=== PATIENT | male | born 1945 | race Two or more races ===

== ENCOUNTER 2016-11-17 14:08 | Inpatient (IN) | payer MEDICAID ==
[2016-11-17 14:01] LABS: BASO % 0.3 % (0-2); EOS % 3.5 % (0-7); EOSINOPHIL ABSOLUTE COUNT 0.4 tho/cmm (0.0-0.7); IMMATURE GRANULOCYTES ABSOLUTE 0.07 tho/cmm (0-0.03); IMMATURE GRANULOCYTES PERCENT 0.7 % (0-0.3); LYMPH % 35.9 % (20-45); LYMPH ABSOLUTE COUNT 3.8 tho/cmm (0.8-4.5); MCH (MEAN CORPUSCULAR HGB) 28.5 pg (28.0-32.0); MCHC MEAN CORPUSCULAR HGB CONC 34.2 % (32.0-36.0); MCV (MEAN CELL VOLUME) 83.3 fl (82.0-96.0); MEAN PLATELET VOLUME 9.4 cmc (9.4-12.4); MONO % 11.1 % (0-12); MONOCYTE ABSOLUTE COUNT 1.2 tho/cmm (0.0-1.2); NEUTROPHIL ABSOLUTE COUNT 5.1 tho/cmm (1.6-8.0); NEUTROPHIL-AUTOMATED 5.1 tho/cmm (1.6-8.0); NEUTROPHILS % 48.5 % (40-80); PLATELET COUNT 363 tho/cmm (150-450); RED BLOOD COUNT 4.56 mil/cmm (4.40-5.70); RED CELL DISTRIBUTION WIDTH 13.5 % (12.4-16.4); WHITE BLOOD COUNT 10.4 tho/cmm (4.0-10.0)
[~2016-11-17 14:08] MED LIST: ANTIVERT25 M1 PO; ASPIRIN325 M3 PO; ATORVASTATIN CA40 M1 PO; BACLOFEN20 M1 PO; CELEXA40 M2 PO; FLUTICASONE PRO16 G1; GLIPIZIDE5 M2 PO; LEVAQUIN750 M1 PO; MECLIZINE HCL25 M3 PO; METFORMIN HCL1000 M2 PO; NEURONTIN300 M1 PO; PLAVIX75 M1 PO; PREDNISOLONE ACE5 M1 OP; PROSCAR5 M1 PO; PROVENTIL HFA6.7 G1 IH; TAMSULOSIN HCL0.4 M1 PO; TOPROL XL25 M1 PO; TYLENOL325 M2 PO; ULTRAM50 M1 PO
[2016-11-17 14:15] LABS: ALB/GLOB RATIO 0.9 (0.8-2.0); ALBUMIN 3.7 g/dl (3.5-5.0); ALKALINE PHOSPHATASE 100 U/L (33-138); ALT/SGPT 22 U/L (12-78); ANION GAP 12 mmol/L (0-20); AST/SGOT 12 U/L (10-40); BILIRUBIN,TOTAL 0.5 mg/dl (0.0-1.5); BLOOD UREA NITROGEN 13 mg/dl (6-24); CARBON DIOXIDE-VENOUS 29 mmol/L (22-32); CHLORIDE 101 mmol/l (96-110); CREATININE 0.84 mg/dl (0.60-1.30); GLUCOSE 140 mg/dL (70-110); POTASSIUM 3.7 mmol/L (3.7-5.1); SODIUM 138 mmol/L (135-145); eGFR VALUE FOR BLACK >90 mL/Min
[2016-11-17 14:45] LABS: ESR-ERYTHROCYTE SED RATE 25 mm/hr (0-20)
[2016-11-17 17:12] LABS: URINE APPEARANCE CLEAR; URINE BILIRUBIN NEGATIVE (NEG); URINE BLOOD NEGATIVE (NEG); URINE COLOR YELLOW; URINE GLUCOSE (UA) NEGATIVE (NEG); URINE KETONE NEGATIVE (NEG); URINE LEUKOCYTE ESTERASE NEGATIVE (NEG); URINE NITRITE NEGATIVE (NEG); URINE PROTEIN NEGATIVE (NEG)
[2016-11-18 14:35] LABS: TSH-THYROID STIMULATING HORM. 2.41 uIU/ml (0.40-3.80)
[2016-11-19] MEDS ORDERED: PLAVIX75 M1 PO (09:43)
[2016-11-19] MEDS ORDERED: TYLENOL325 M2 PO (09:46)
[2017-04-10] MEDS ORDERED: POTASSIUM CHLO20 ME3 PO (11:17)
[2017-04-10] MEDS ORDERED: LASIX40 M1 PO (11:17)
[2017-05-11] MEDS ORDERED: ROXANOL SL (12:58)
[2017-05-11] MEDS ORDERED: COLACE100 M1 PO (13:03)
[2017-05-11] MEDS ORDERED: MIRALAX17 G2 PO (13:03)
== END 2016-11-19 15:10 | DRG 66 ==
LOC: EDMED 14:08 → EMR2 16:48 → 5EB 19:10
PROVIDERS: Emergency Medicine; Psychiatry & Neurology Neurology; ADMIT Internal Medicine
DX: I63.9 Cerebral infarction, unspecified (principal); E11.65 Type 2 diabetes mellitus with hyperglycemia; I10 Essential (primary) hypertension; R29.810 Facial weakness; R33.9 Retention of urine, unspecified; Z79.82 Long term (current) use of aspirin; Z79.02 Long term (current) use of antithrombotics/antiplatelets; I73.9 Peripheral vascular disease, unspecified; Z79.84 Long term (current) use of oral hypoglycemic drugs; Z87.891 Personal history of nicotine dependence; Z85.528 Personal history of other malignant neoplasm of kidney; R30.0 Dysuria; R27.0 Ataxia, unspecified
CPT/HCPCS: A9577; J1650; J1815; J7030

== ENCOUNTER 2016-11-20 17:48 | Inpatient (IN) | payer MEDICAID ==
[2016-11-20 18:21] LABS: CARBON DIOXIDE-VENOUS 30 mmol/L (21-33); CREATININE 1.42 mg/dl (0.67-1.17); GLUCOSE 210 mg/dl (65-120); POTASSIUM 4.2 mmol/L (3.5-5.3); SODIUM 138 mmol/L (135-146); eGFR VALUE FOR BLACK 58 mL/Min
[2016-11-20 18:23] LABS: BASO % 0.2 % (0-2); EOS % 2.6 % (0-7); EOSINOPHIL ABSOLUTE COUNT 0.3 tho/cmm (0.0-0.7); HCT-HEMATOCRIT 36.2 % (36.0-53.5); HGB-HEMOGLOBIN 12.2 gm/dl (13.5-17.0); IMMATURE GRANULOCYTES ABSOLUTE 0.04 tho/cmm (0-0.03); IMMATURE GRANULOCYTES PERCENT 0.3 % (0-0.3); LYMPH % 29.7 % (20-45); LYMPH ABSOLUTE COUNT 3.4 tho/cmm (0.8-4.5); MCH (MEAN CORPUSCULAR HGB) 28.5 pg (28.0-32.0); MCHC MEAN CORPUSCULAR HGB CONC 33.7 % (32.0-36.0); MCV (MEAN CELL VOLUME) 84.6 fl (82.0-96.0); MEAN PLATELET VOLUME 9.5 cmc (9.4-12.4); MONO % 9.9 % (0-12); MONOCYTE ABSOLUTE COUNT 1.1 tho/cmm (0.0-1.2); NEUTROPHIL ABSOLUTE COUNT 6.6 tho/cmm (1.6-8.0); NEUTROPHIL-AUTOMATED 6.6 tho/cmm (1.6-8.0); NEUTROPHILS % 57.3 % (40-80); PLATELET COUNT 330 tho/cmm (150-450); RED BLOOD COUNT 4.28 mil/cmm (4.40-5.70); RED CELL DISTRIBUTION WIDTH 13.4 % (12.4-16.4); WHITE BLOOD COUNT 11.6 tho/cmm (4.0-10.0)
[2016-11-20 18:29] LABS: INR 1.1 INR (0.9-1.1); PROTHROMBIN TIME 12.6 SECONDS (9.0-13.6)
[2016-11-20 18:41] LABS: ALBUMIN 3.7 g/dl (3.5-5.0); ALKALINE PHOSPHATASE 97 U/L (33-138); ALT/SGPT 23 U/L (12-78); ANION GAP 9 mmol/L (0-20); AST/SGOT 15 U/L (10-40); BILIRUBIN,TOTAL 0.5 mg/dl (0.0-1.5); BLOOD UREA NITROGEN 19 mg/dl (6-24); CHLORIDE 103 mmol/l (96-110)
[2016-11-20 18:54] LABS: ESR-ERYTHROCYTE SED RATE 19 mm/hr (0-20)
[2016-11-20 20:27] LABS: ABG CO2 ARTERIAL 27 mmol/L (21-27); ARTERIAL BLD GAS O2 SATURATION 94 % (95-98); ARTERIAL BLOOD GAS PCO2 46 mmHg (32-45); ARTERIAL PO2 76 mmHg (70-100); BICARBONATE 25 mmol/L (21-28); BLOOD GAS BASE EXCESS 0 mM/L (-/+3); PH 7.36 Units (7.35-7.45)
[2016-11-20 20:56] LABS: URINE LEUKOCYTE ESTERASE NEGATIVE (NEG); URINE PROTEIN MODERATE (NEG)
[2016-11-20 20:57] LABS: URINE APPEARANCE CLOUDY; URINE BILIRUBIN SMALL (NEG); URINE BLOOD MODERATE (NEG); URINE COLOR YELLOW; URINE GLUCOSE (UA) MODERATE (NEG); URINE KETONE SMALL (NEG); URINE NITRITE NEGATIVE (NEG)
[2016-11-20 21:01] LABS: URINE RBC 0-2 /[HPF] (0-5); URINE WBC 0 /[HPF] (0-5)
[2016-11-20 21:02] LABS: URINE EPITHELIAL CELLS 0 /[HPF] (0-10)
[2016-11-20 23:15] LABS: AMYLASE 40 U/L (20-90); LIPASE 62 U/L (73-393)
[2016-11-21 06:31] LABS: CREATININE 0.78 mg/dl (0.67-1.17); eGFR VALUE FOR BLACK >90 mL/Min
[2016-11-22 05:51] LABS: BASO % 0.5 % (0-2); BASO ABSOLUTE COUNT 0.1 tho/cmm (0.0-0.2); EOS % 3.1 % (0-7); EOSINOPHIL ABSOLUTE COUNT 0.3 tho/cmm (0.0-0.7); HCT-HEMATOCRIT 36.3 % (36.0-53.5); HGB-HEMOGLOBIN 12.3 gm/dl (13.5-17.0); IMMATURE GRANULOCYTES ABSOLUTE 0.04 tho/cmm (0-0.03); IMMATURE GRANULOCYTES PERCENT 0.4 % (0-0.3); LYMPH ABSOLUTE COUNT 3.9 tho/cmm (0.8-4.5); MCH (MEAN CORPUSCULAR HGB) 28.2 pg (28.0-32.0); MCHC MEAN CORPUSCULAR HGB CONC 33.9 % (32.0-36.0); MCV (MEAN CELL VOLUME) 83.3 fl (82.0-96.0); MEAN PLATELET VOLUME 9.4 cmc (9.4-12.4); MONO % 10.1 % (0-12); NEUTROPHIL ABSOLUTE COUNT 4.9 tho/cmm (1.6-8.0); NEUTROPHIL-AUTOMATED 4.9 tho/cmm (1.6-8.0); NEUTROPHILS % 47.9 % (40-80); PLATELET COUNT 355 tho/cmm (150-450); RED BLOOD COUNT 4.36 mil/cmm (4.40-5.70); RED CELL DISTRIBUTION WIDTH 13.1 % (12.4-16.4); WHITE BLOOD COUNT 10.2 tho/cmm (4.0-10.0)
[2016-11-22 06:08] LABS: ANION GAP 10 mmol/L (0-20); BLOOD UREA NITROGEN 8 mg/dl (6-24); CALCIUM 8.6 mg/dl (8.5-10.5); CARBON DIOXIDE-VENOUS 29 mmol/L (22-32); CHLORIDE 103 mmol/l (96-110); CREATININE 0.77 mg/dl (0.60-1.30); GLUCOSE 169 mg/dL (70-110); POTASSIUM 3.6 mmol/L (3.7-5.1); SODIUM 138 mmol/L (135-145); eGFR VALUE FOR BLACK >90 mL/Min
[2017-04-10] MEDS ORDERED: POTASSIUM CHLO20 ME3 PO (11:17)
[2017-04-10] MEDS ORDERED: LASIX40 M1 PO (11:17)
[2017-05-11] MEDS ORDERED: ROXANOL SL (12:58)
[2017-05-11] MEDS ORDERED: MIRALAX17 G2 PO (13:03)
[2017-05-11] MEDS ORDERED: COLACE100 M1 PO (13:03)
== END 2016-11-22 13:30 | disposition home health service (06) | DRG 444 ==
LOC: EDMED 17:48 → EMR2 21:31 → PCUB 11-21 00:35
PROVIDERS: Emergency Medicine; Family Medicine; Internal Medicine; ADMIT Hospitalist
DX: K80.20 Calculus of gallbladder without cholecystitis without obstruction (principal); A41.9 Sepsis, unspecified organism; R65.20 Severe sepsis without septic shock; N17.9 Acute kidney failure, unspecified; I95.9 Hypotension, unspecified; E11.51 Type 2 diabetes mellitus with diabetic peripheral angiopathy without gangrene; R41.82 Altered mental status, unspecified; E78.5 Hyperlipidemia, unspecified; Z87.891 Personal history of nicotine dependence; Z85.528 Personal history of other malignant neoplasm of kidney; Z86.73 Personal history of transient ischemic attack (TIA), and cerebral infarction without residual deficits
CPT/HCPCS: G8978-GP-CJ; G8979-GP-CJ; J1815; J2543; J3370; J7030

== ENCOUNTER 2017-04-23 15:38 | Inpatient (IN) | payer MEDICAID ==
[~2017-04-23] VITALS: Ht 188 cm; Wt 81.8 kg
[~2017-04-23 15:38] MED LIST changes: +LASIX40 M1 PO; +POTASSIUM CHLO20 ME3 PO
[2017-04-23 15:58] LABS: ABG CO2 ARTERIAL 28 mmol/L (21-27); ARTERIAL BLD GAS O2 SATURATION 100 % (95-98); ARTERIAL BLOOD GAS PCO2 41 mmHg (32-45); ARTERIAL PO2 215 mmHg (70-100); BICARBONATE 27 mmol/L (21-28); BLOOD GAS BASE EXCESS 3 mM/L (-/+3); PH 7.44 Units (7.35-7.45)
[2017-04-23 16:08] LABS: INR 1.4 INR (0.9-1.1); PROTHROMBIN TIME 16.1 SECONDS (9.0-13.6)
[2017-04-23 16:09] LABS: BASO % 0.9 % (0-2); BASO ABSOLUTE COUNT 0.1 tho/cmm (0.0-0.2); EOS % 3.1 % (0-7); EOSINOPHIL ABSOLUTE COUNT 0.3 tho/cmm (0.0-0.7); HGB-HEMOGLOBIN 6.6 gm/dl (13.5-17.0); IMMATURE GRANULOCYTES ABSOLUTE 0.02 tho/cmm (0-0.03); IMMATURE GRANULOCYTES PERCENT 0.3 % (0-0.3); LYMPH % 30.9 % (20-45); LYMPH ABSOLUTE COUNT 2.5 tho/cmm (0.8-4.5); MCH (MEAN CORPUSCULAR HGB) 27.2 pg (28.0-32.0); MCV (MEAN CELL VOLUME) 82.3 fl (82.0-96.0); MEAN PLATELET VOLUME 8.8 cmc (9.4-12.4); MONOCYTE ABSOLUTE COUNT 0.8 tho/cmm (0.0-1.2); NEUTROPHIL ABSOLUTE COUNT 4.4 tho/cmm (1.6-8.0); NEUTROPHIL-AUTOMATED 4.4 tho/cmm (1.6-8.0); NEUTROPHILS % 54.8 % (40-80); PLATELET COUNT 256 tho/cmm (150-450); RED BLOOD COUNT 2.43 mil/cmm (4.40-5.70); RED CELL DISTRIBUTION WIDTH 21.8 % (12.4-16.4)
[2017-04-23 16:24] LABS: ALB/GLOB RATIO 0.4 (0.8-2.0); ALBUMIN 2.2 g/dl (3.5-5.0); ALKALINE PHOSPHATASE 70 U/L (33-138); ALT/SGPT 15 U/L (12-78); ANION GAP 12 mmol/L (0-20); AST/SGOT 6 U/L (10-40); BILIRUBIN,TOTAL 0.6 mg/dl (0.0-1.5); BLOOD UREA NITROGEN 13 mg/dl (6-24); CALCIUM 7.8 mg/dl (8.5-10.5); CARBON DIOXIDE-VENOUS 27 mmol/L (22-32); CHLORIDE 103 mmol/l (96-110); CREATININE 0.89 mg/dl (0.60-1.30); GLUCOSE 105 mg/dL (70-110); POTASSIUM 3.9 mmol/L (3.7-5.1); SODIUM 138 mmol/L (135-145); eGFR VALUE FOR BLACK >90 mL/Min
[2017-04-23 16:49] LABS: PROCALCITONIN 0.45 ng/ml (0.05-0.09)
[2017-04-23 17:45] LABS: URINE BILIRUBIN NEGATIVE (NEG); URINE BLOOD MODERATE (NEG); URINE GLUCOSE (UA) NEGATIVE (NEG); URINE KETONE NEGATIVE (NEG); URINE LEUKOCYTE ESTERASE NEGATIVE (NEG); URINE NITRITE NEGATIVE (NEG); URINE PROTEIN NEGATIVE (NEG); URINE SPECIFIC GRAVITY 1.005 (1.003-1.030)
[2017-04-23 17:50] LABS: URINE APPEARANCE CLEAR; URINE COLOR YELLOW
[2017-04-23 18:01] LABS: URINE EPITHELIAL CELLS 0 /[HPF] (0-10); URINE WBC 0 /[HPF] (0-5)
--- NOTE | 2017-04-23 22:21 | NUR ---
CHARTED AGAINST 2000 ASSESSMENT BECAUSE CHARTED ADMISSION ASSESSMENT. PT ARRIVED TO FLOOR AROUND 1924. DID NOT CHART 2 ASSESSMENTS. SEE ADMISSION ASSESSMENT.
[2017-04-24 05:00] LABS: BASO % 0.3 % (0-2); BASO ABSOLUTE COUNT 0.1 tho/cmm (0.0-0.2); EOS % 0.7 % (0-7); EOSINOPHIL ABSOLUTE COUNT 0.1 tho/cmm (0.0-0.7); HCT-HEMATOCRIT 19.3 % (36.0-53.5); HGB-HEMOGLOBIN 6.3 gm/dl (13.5-17.0); IMMATURE GRANULOCYTES ABSOLUTE 0.06 tho/cmm (0-0.03); IMMATURE GRANULOCYTES PERCENT 0.3 % (0-0.3); LYMPH % 20.4 % (20-45); LYMPH ABSOLUTE COUNT 3.7 tho/cmm (0.8-4.5); MCHC MEAN CORPUSCULAR HGB CONC 32.6 % (32.0-36.0); MCV (MEAN CELL VOLUME) 82.8 fl (82.0-96.0); MONO % 4.3 % (0-12); MONOCYTE ABSOLUTE COUNT 0.8 tho/cmm (0.0-1.2); NEUTROPHIL ABSOLUTE COUNT 13.2 tho/cmm (1.6-8.0); NEUTROPHIL-AUTOMATED 13.2 tho/cmm (1.6-8.0); PLATELET COUNT 244 tho/cmm (150-450); RED BLOOD COUNT 2.33 mil/cmm (4.40-5.70); RED CELL DISTRIBUTION WIDTH 21.9 % (12.4-16.4); WHITE BLOOD COUNT 17.9 tho/cmm (4.0-10.0)
[2017-04-24 05:11] LABS: ABG CO2 ARTERIAL 26 mmol/L (21-27); ARTERIAL BLD GAS O2 SATURATION 98 % (95-98); ARTERIAL BLOOD GAS PCO2 35 mmHg (32-45); ARTERIAL PO2 90 mmHg (70-100); BICARBONATE 25 mmol/L (21-28); BLOOD GAS BASE EXCESS 2 mM/L (-/+3); PH 7.47 Units (7.35-7.45)
[2017-04-24 05:13] LABS: ALB/GLOB RATIO 0.5 (0.8-2.0); ALBUMIN 2.2 g/dl (3.5-5.0); ALKALINE PHOSPHATASE 66 U/L (33-138); ALT/SGPT 11 U/L (12-78); ANION GAP 12 mmol/L (0-20); AST/SGOT 6 U/L (10-40); BILIRUBIN,TOTAL 0.6 mg/dl (0.0-1.5); BLOOD UREA NITROGEN 14 mg/dl (6-24); CALCIUM 7.2 mg/dl (8.5-10.5); CARBON DIOXIDE-VENOUS 26 mmol/L (22-32); CHLORIDE 105 mmol/l (96-110); CREATININE 1.01 mg/dl (0.60-1.30); GLUCOSE 128 mg/dL (70-110); POTASSIUM 3.9 mmol/L (3.7-5.1); SODIUM 139 mmol/L (135-145); eGFR VALUE FOR BLACK 87 mL/Min
[2017-04-24 06:05] LABS: PROCALCITONIN 0.48 ng/ml (0.05-0.09)
[2017-04-24 11:03] LABS: HCT-HEMATOCRIT 21.7 % (36.0-53.5); HGB-HEMOGLOBIN 7.4 gm/dl (13.5-17.0); MCV (MEAN CELL VOLUME) 84.4 fl (82.0-96.0); RED CELL DISTRIBUTION WIDTH 20.9 % (12.4-16.4)
[2017-04-24 11:18] LABS: IRON 16 ug/dl (49-181); IRON BINDING CAPACITY 165 ug/dl (250-450)
[2017-04-24 15:08] LABS: CSF GLUCOSE 88 mg/dl (40-75)
[2017-04-24 15:15] LABS: CSF APPEARANCE CLEAR (CLEAR); CSF COLOR COLORLESS (COLORLESS); CSF TUBE NUMBER CSF TUBE 3; CSF VOLUME 7.5 ml
[2017-04-24 15:16] LABS: CSF RBC CT 0 cmm (0); CSF WBC CT <1 cmm (0-10)
[2017-04-24 16:00] LABS: MCV (MEAN CELL VOLUME) 82.5 fl (82.0-96.0); RED CELL DISTRIBUTION WIDTH 19.3 % (12.4-16.4)
[2017-04-24 16:05] LABS: HCT-HEMATOCRIT 27.3 % (36.0-53.5); HGB-HEMOGLOBIN 9.3 gm/dl (13.5-17.0)
[2017-04-24 19:27] LABS: HCT-HEMATOCRIT 25.8 % (36.0-53.5); HGB-HEMOGLOBIN 8.9 gm/dl (13.5-17.0); MCV (MEAN CELL VOLUME) 82.4 fl (82.0-96.0); RED CELL DISTRIBUTION WIDTH 19.5 % (12.4-16.4)
[2017-04-25 05:04] LABS: ABG CO2 ARTERIAL 26 mmol/L (21-27); ARTERIAL BLD GAS O2 SATURATION 98 % (95-98); ARTERIAL BLOOD GAS PCO2 37 mmHg (32-45); ARTERIAL PO2 95 mmHg (70-100); BICARBONATE 25 mmol/L (21-28); BLOOD GAS BASE EXCESS 1 mM/L (-/+3); PH 7.45 Units (7.35-7.45)
[2017-04-25 05:36] LABS: BASO % 0.7 % (0-2); BASO ABSOLUTE COUNT 0.1 tho/cmm (0.0-0.2); EOS % 2.5 % (0-7); EOSINOPHIL ABSOLUTE COUNT 0.3 tho/cmm (0.0-0.7); HCT-HEMATOCRIT 27.3 % (36.0-53.5); HGB-HEMOGLOBIN 9.3 gm/dl (13.5-17.0); IMMATURE GRANULOCYTES ABSOLUTE 0.02 tho/cmm (0-0.03); IMMATURE GRANULOCYTES PERCENT 0.2 % (0-0.3); LYMPH % 30.6 % (20-45); LYMPH ABSOLUTE COUNT 3.1 tho/cmm (0.8-4.5); MCHC MEAN CORPUSCULAR HGB CONC 34.1 % (32.0-36.0); MCV (MEAN CELL VOLUME) 82.2 fl (82.0-96.0); MEAN PLATELET VOLUME 8.7 cmc (9.4-12.4); MONO % 8.9 % (0-12); MONOCYTE ABSOLUTE COUNT 0.9 tho/cmm (0.0-1.2); NEUTROPHIL ABSOLUTE COUNT 5.9 tho/cmm (1.6-8.0); NEUTROPHIL-AUTOMATED 5.9 tho/cmm (1.6-8.0); NEUTROPHILS % 57.1 % (40-80); PLATELET COUNT 202 tho/cmm (150-450); RED BLOOD COUNT 3.32 mil/cmm (4.40-5.70); RED CELL DISTRIBUTION WIDTH 19.5 % (12.4-16.4); WHITE BLOOD COUNT 10.3 tho/cmm (4.0-10.0)
[2017-04-25 05:47] LABS: ANION GAP 10 mmol/L (0-20); BLOOD UREA NITROGEN 10 mg/dl (6-24); CALCIUM 7.2 mg/dl (8.5-10.5); CARBON DIOXIDE-VENOUS 25 mmol/L (22-32); CHLORIDE 106 mmol/l (96-110); CREATININE 0.79 mg/dl (0.60-1.30); GLUCOSE 141 mg/dL (70-110); POTASSIUM 3.7 mmol/L (3.7-5.1); SODIUM 137 mmol/L (135-145); eGFR VALUE FOR BLACK >90 mL/Min
[2017-04-25 06:02] LABS: PROCALCITONIN 0.32 ng/ml (0.05-0.09)
[2017-04-26 05:45] LABS: BASO % 0.8 % (0-2); BASO ABSOLUTE COUNT 0.1 tho/cmm (0.0-0.2); EOS % 2.3 % (0-7); EOSINOPHIL ABSOLUTE COUNT 0.2 tho/cmm (0.0-0.7); HCT-HEMATOCRIT 30.1 % (36.0-53.5); HGB-HEMOGLOBIN 10.1 gm/dl (13.5-17.0); IMMATURE GRANULOCYTES ABSOLUTE 0.03 tho/cmm (0-0.03); IMMATURE GRANULOCYTES PERCENT 0.3 % (0-0.3); LYMPH % 29.4 % (20-45); LYMPH ABSOLUTE COUNT 2.8 tho/cmm (0.8-4.5); MCH (MEAN CORPUSCULAR HGB) 27.6 pg (28.0-32.0); MCHC MEAN CORPUSCULAR HGB CONC 33.6 % (32.0-36.0); MCV (MEAN CELL VOLUME) 82.2 fl (82.0-96.0); MEAN PLATELET VOLUME 9.1 cmc (9.4-12.4); MONO % 10.2 % (0-12); NEUTROPHIL ABSOLUTE COUNT 5.5 tho/cmm (1.6-8.0); NEUTROPHIL-AUTOMATED 5.5 tho/cmm (1.6-8.0); PLATELET COUNT 202 tho/cmm (150-450); RED BLOOD COUNT 3.66 mil/cmm (4.40-5.70); RED CELL DISTRIBUTION WIDTH 19.1 % (12.4-16.4); WHITE BLOOD COUNT 9.6 tho/cmm (4.0-10.0)
[2017-04-26 05:55] LABS: ALB/GLOB RATIO 0.3 (0.8-2.0); ALBUMIN 1.9 g/dl (3.5-5.0); ALKALINE PHOSPHATASE 68 U/L (33-138); ALT/SGPT <10 U/L (12-78); ANION GAP 10 mmol/L (0-20); AST/SGOT 9 U/L (10-40); BILIRUBIN,TOTAL 0.8 mg/dl (0.0-1.5); BLOOD UREA NITROGEN 7 mg/dl (6-24); CALCIUM 7.4 mg/dl (8.5-10.5); CARBON DIOXIDE-VENOUS 25 mmol/L (22-32); CHLORIDE 106 mmol/l (96-110); CREATININE 0.79 mg/dl (0.60-1.30); GLUCOSE 99 mg/dL (70-110); MAGNESIUM 1.4 mg/dl (1.8-2.6); PHOSPHOROUS 2.4 mg/dl (2.5-4.9); POTASSIUM 3.8 mmol/L (3.7-5.1); SODIUM 137 mmol/L (135-145); eGFR VALUE FOR BLACK >90 mL/Min
[2017-04-27 04:20] LABS: BASO % 0.5 % (0-2); EOS % 2.1 % (0-7); EOSINOPHIL ABSOLUTE COUNT 0.2 tho/cmm (0.0-0.7); HCT-HEMATOCRIT 28.8 % (36.0-53.5); HGB-HEMOGLOBIN 9.4 gm/dl (13.5-17.0); IMMATURE GRANULOCYTES ABSOLUTE 0.01 tho/cmm (0-0.03); IMMATURE GRANULOCYTES PERCENT 0.1 % (0-0.3); LYMPH % 36.2 % (20-45); LYMPH ABSOLUTE COUNT 3.1 tho/cmm (0.8-4.5); MCHC MEAN CORPUSCULAR HGB CONC 32.6 % (32.0-36.0); MCV (MEAN CELL VOLUME) 82.8 fl (82.0-96.0); MEAN PLATELET VOLUME 9.2 cmc (9.4-12.4); MONO % 9.6 % (0-12); MONOCYTE ABSOLUTE COUNT 0.8 tho/cmm (0.0-1.2); NEUTROPHIL ABSOLUTE COUNT 4.4 tho/cmm (1.6-8.0); NEUTROPHIL-AUTOMATED 4.4 tho/cmm (1.6-8.0); NEUTROPHILS % 51.5 % (40-80); PLATELET COUNT 188 tho/cmm (150-450); RED BLOOD COUNT 3.48 mil/cmm (4.40-5.70); WHITE BLOOD COUNT 8.5 tho/cmm (4.0-10.0)
[2017-04-27 04:29] LABS: ANION GAP 9 mmol/L (0-20); BLOOD UREA NITROGEN 6 mg/dl (6-24); C-REACTIVE PROTEIN 4.5 mg/dl (0-0.9); CALCIUM 6.8 mg/dl (8.5-10.5); CARBON DIOXIDE-VENOUS 25 mmol/L (22-32); CHLORIDE 107 mmol/l (96-110); CREATININE 0.77 mg/dl (0.60-1.30); GLUCOSE 113 mg/dL (70-110); POTASSIUM 3.6 mmol/L (3.7-5.1); SODIUM 137 mmol/L (135-145); eGFR VALUE FOR BLACK >90 mL/Min
--- NOTE | 2017-04-27 21:29 | NUR ---
VN ROUNDING DEFERRED PATIENT DOES NOT SPEAK MALTESE AND IS SLEEPING. UNABLE TO VIEW BY VN CAMERA IT IS POINTING AT CEILING.
[2017-04-28 06:27] LABS: BASO ABSOLUTE COUNT 0.1 tho/cmm (0.0-0.2); EOS % 2.5 % (0-7); EOSINOPHIL ABSOLUTE COUNT 0.2 tho/cmm (0.0-0.7); HGB-HEMOGLOBIN 9.2 gm/dl (13.5-17.0); IMMATURE GRANULOCYTES ABSOLUTE 0.03 tho/cmm (0-0.03); IMMATURE GRANULOCYTES PERCENT 0.4 % (0-0.3); LYMPH % 35.5 % (20-45); LYMPH ABSOLUTE COUNT 2.7 tho/cmm (0.8-4.5); MCH (MEAN CORPUSCULAR HGB) 27.3 pg (28.0-32.0); MCHC MEAN CORPUSCULAR HGB CONC 32.9 % (32.0-36.0); MCV (MEAN CELL VOLUME) 83.1 fl (82.0-96.0); MEAN PLATELET VOLUME 8.8 cmc (9.4-12.4); MONO % 13.1 % (0-12); NEUTROPHIL ABSOLUTE COUNT 3.6 tho/cmm (1.6-8.0); NEUTROPHIL-AUTOMATED 3.6 tho/cmm (1.6-8.0); NEUTROPHILS % 47.5 % (40-80); PLATELET COUNT 150 tho/cmm (150-450); RED BLOOD COUNT 3.37 mil/cmm (4.40-5.70); RED CELL DISTRIBUTION WIDTH 18.9 % (12.4-16.4); WHITE BLOOD COUNT 7.6 tho/cmm (4.0-10.0)
[2017-04-28] MEDS ORDERED: LEVAQUIN750 M1 PO (13:51)
== END 2017-04-28 18:35 | DRG 871 ==
LOC: EDMED → EDBD 15:38 → EDMED 15:38 → EMR2 18:28 → CCU 18:28 → 5WD 18:28 → CCU 19:08 → 5WD 04-26 18:30
PROVIDERS: Emergency Medicine; Family Medicine; ADMIT Internal Medicine
PROC: 5A1945Z Respiratory Ventilation, 24-96 Consecutive Hours (ICD-10-PCS; principal; 2017-04-23)
PROC: 02HV33Z Insertion of Infusion Device into Superior Vena Cava, Percutaneous Approach (ICD-10-PCS; 2017-04-23)
PROC: 0BH17EZ Insertion of Endotracheal Airway into Trachea, Via Natural or Artificial Opening (ICD-10-PCS; 2017-04-23)
DX: A41.9 Sepsis, unspecified organism (principal); G93.40 Encephalopathy, unspecified; J96.01 Acute respiratory failure with hypoxia; R65.21 Severe sepsis with septic shock; J18.9 Pneumonia, unspecified organism; D50.9 Iron deficiency anemia, unspecified; Z51.5 Encounter for palliative care; I10 Essential (primary) hypertension; E11.9 Type 2 diabetes mellitus without complications; Z86.73 Personal history of transient ischemic attack (TIA), and cerebral infarction without residual deficits
CPT/HCPCS: C1751; C8929; C9113; G8996-GN-CK; G8997-GN-CJ; J1650; J1756; J1815; J1956; J2060; J2543; J3370; J7030; J7040; J7050; P9016; P9045